=== PATIENT | female | born 1995 | race Caucasian/White ===

== ENCOUNTER 2021-04-10 08:03 | Emergency (ER) | payer OTHER ==
[~2021-04-10] VITALS: Ht 160 cm; Wt 75.4 kg
[2021-04-10 10:19] VITALS: BP 114/58
== END 2021-04-10 10:19 | disposition home or self-care (01) ==
LOC: M ED 08:03 → EDBD 08:03 → M ED 10:19
DX: O98.519 Other viral diseases complicating pregnancy, unspecified trimester (principal); B34.9 Viral infection, unspecified; O21.8 Other vomiting complicating pregnancy; Z91.030 Bee allergy status; Z20.822 Contact with and (suspected) exposure to COVID-19; Z3A.00 Weeks of gestation of pregnancy not specified
CPT/HCPCS: 99283; U0003